=== PATIENT | male | born 1960 | race African-American/Black ===

== ENCOUNTER 2023-07-23 | Emergency (ER) | payer OTHER ==
[~2023-07-23] VITALS: Ht 182.9 cm; Wt 90.0 kg
[2023-07-23 00:05] VITALS: BP 202/100; PULSE 100; RESP 16; TEMP 97.8; O2SAT 99
[2023-07-23] MEDS ORDERED: OLANZAPINE 10 MG/VIAL IM STA (00:38)
[2023-07-23] MEDS ORDERED: LORAZEPAM 1MG TABLET PO ONE (00:45)
[2023-07-23 01:06] LABS: BASOPHILS % 0.6 % (0.0-2.0); EOSINOPHILS % 0.1 % (0.0-5.0); HEMATOCRIT. 40.4 % (42.0-52.0); HEMOGLOBIN. 13.9 g/dL (14.0-18.0); LYMPHOCYTES % 14.8 % (20.0-50.0); MEAN CORPUSCULAR HEMOGLOBIN 32.2 pg (28.0-32.0); MEAN CORPUSCULAR HGB CONC 34.4 g/dL (31.0-37.0); MEAN CORPUSCULAR VOLUME 93.6 fL (80.0-94.0); MEAN PLATELET VOLUME 7.5 fl (7.4-10.4); MONOCYTES % 5.2 % (2.0-8.0); NEUTROPHILS % 79.3 % (40.0-76.0); PLATELET 283 x1000/uL (130-400); RED BLOOD CELL COUNT 4.32 mill/uL (4.7-6.1); RED CELL DISTRIBUTION WIDTH 13.4 % (11.6-14.6); WHITE BLOOD COUNT 7.2 x1000/uL (4.5-11.0)
[2023-07-23 01:07] LABS: CHLORIDE 107 mEq/L (98-107); SODIUM 141 mEq/L (136-145)
[2023-07-23 01:08] LABS: CARBON DIOXIDE 26 mEq/L (21-32)
[2023-07-23 01:09] LABS: CALCIUM 9.5 mg/dL (8.7-10.4)
[2023-07-23 01:13] LABS: CREATININE 1.4 mg/dL (0.6-1.3); GLUCOSE 119 mg/dL (70-105)
[2023-07-23 01:14] LABS: UREA NITROGEN BLOOD 22 mg/dL (9-23)
[2023-07-23 01:15] LABS: ACETAMINOPHEN < 2 ug/mL (10-30); ALANINE AMINOTRANSFERASE 17 IU/L (10-49); ALBUMIN 5.1 g/dL (3.2-4.8); ASPARTATE AMINOTRANSFERASE 29 IU/L (<34)
[2023-07-23 01:16] LABS: BILIRUBIN TOTAL 0.5 mg/dL (0.1-1.0); PROTEIN TOTAL 8.8 g/dL (6.0-8.3)
[2023-07-23 01:17] LABS: ETHANOL BLOOD < 10 mg/dL (<10)
== END 2023-07-23 01:50 | disposition left against medical advice (07) ==
LOC: ER
DX: F41.9 Anxiety disorder, unspecified (principal); E11.9 Type 2 diabetes mellitus without complications; I10 Essential (primary) hypertension; F14.90 Cocaine use, unspecified, uncomplicated
CPT/HCPCS: 36415; 80053; 80307; 80320; 80329; 85025; 99283; G0480